=== PATIENT | male | born 1965 | race Caucasian/White ===

== ENCOUNTER 2022-06-11 15:35 | Emergency (ER) | payer MEDICAID ==
[~2022-06-11] VITALS: Ht 170.2 cm; Wt 77.3 kg
[2022-06-11] MEDS ORDERED: INSLAN SQ (15:42)
[2022-06-11] MEDS ORDERED: METF-1185 PO (15:42)
[2022-06-11] MEDS ORDERED: htn med PO (15:42)
[2022-06-11] MEDS ORDERED: GABA-1181 PO (15:42)
[2022-06-11] MEDS ORDERED: APIX5TAB PO (15:42)
[2022-06-11] MEDS ORDERED: ASPI-1450 PO (15:42)
[2022-06-11] MEDS ORDERED: TRAZ-252 PO (15:42)
[2022-06-11] MEDS ORDERED: abx PO (15:42)
[2022-06-11] MEDS ORDERED: HYDR-4723 PO (15:42)
[2022-06-11] MEDS ORDERED: ARIP2TAB27 PO (15:42)
[2022-06-11 18:26] VITALS: BP 132/71
== END 2022-06-11 19:29 | disposition home or self-care (01) ==
LOC: EMS 15:39
DX: M96.841 Postprocedural hematoma of a musculoskeletal structure following other procedure (principal); F41.9 Anxiety disorder, unspecified; I11.0 Hypertensive heart disease with heart failure; I50.9 Heart failure, unspecified; F32.A Depression, unspecified; E11.40 Type 2 diabetes mellitus with diabetic neuropathy, unspecified; Z98.890 Other specified postprocedural states
CPT/HCPCS: 82962; 99282